=== PATIENT | male | born 1965 | race Caucasian/White ===

== ENCOUNTER → 2020-12-23 | Outpatient (CLI) | payer BC, OTHER | LOC: HYPER 07:42 | PROVIDERS: ATTEND Emergency Medicine | DX: T81.31XA Disruption of external operation (surgical) wound, not elsewhere classified, initial encounter (principal); L05.91 Pilonidal cyst without abscess; E66.9 Obesity, unspecified; F32.9 Major depressive disorder, single episode, unspecified; F41.9 Anxiety disorder, unspecified; Z68.34 Body mass index [BMI] 34.0-34.9, adult; Y92.238 Other place in hospital as the place of occurrence of the external cause; Y83.8 Other surgical procedures as the cause of abnormal reaction of the patient, or of later complication, without mention of misadventure at the time of the procedure ==

== ENCOUNTER → 2020-12-30 | Outpatient (CLI) | payer BC, OTHER | LOC: HYPER 07:44 | PROVIDERS: ATTEND Emergency Medicine | DX: T81.31XD Disruption of external operation (surgical) wound, not elsewhere classified, subsequent encounter (principal); L05.91 Pilonidal cyst without abscess; E66.9 Obesity, unspecified; F32.9 Major depressive disorder, single episode, unspecified; F41.9 Anxiety disorder, unspecified; Z68.34 Body mass index [BMI] 34.0-34.9, adult; Y83.8 Other surgical procedures as the cause of abnormal reaction of the patient, or of later complication, without mention of misadventure at the time of the procedure ==

== ENCOUNTER → 2021-01-05 | Outpatient (CLI) | payer BC, OTHER | LOC: HYPER 07:35 | PROVIDERS: ATTEND Specialist | DX: T81.31XD Disruption of external operation (surgical) wound, not elsewhere classified, subsequent encounter (principal); L05.91 Pilonidal cyst without abscess; E66.9 Obesity, unspecified; F32.9 Major depressive disorder, single episode, unspecified; F41.9 Anxiety disorder, unspecified; Z68.34 Body mass index [BMI] 34.0-34.9, adult; Y83.8 Other surgical procedures as the cause of abnormal reaction of the patient, or of later complication, without mention of misadventure at the time of the procedure ==

== ENCOUNTER → 2021-01-11 | Outpatient (CLI) | payer BC, OTHER | LOC: HYPER 08:58 | PROVIDERS: ATTEND Emergency Medicine Emergency Medical Services | DX: T81.31XD Disruption of external operation (surgical) wound, not elsewhere classified, subsequent encounter (principal); L98.492 Non-pressure chronic ulcer of skin of other sites with fat layer exposed; L05.91 Pilonidal cyst without abscess; F41.9 Anxiety disorder, unspecified; F32.9 Major depressive disorder, single episode, unspecified; Z79.899 Other long term (current) drug therapy; Y83.8 Other surgical procedures as the cause of abnormal reaction of the patient, or of later complication, without mention of misadventure at the time of the procedure ==

== ENCOUNTER → 2021-01-21 | Outpatient (CLI) | payer BC, OTHER | LOC: HYPER 08:06 | PROVIDERS: ATTEND Emergency Medicine | DX: T81.31XD Disruption of external operation (surgical) wound, not elsewhere classified, subsequent encounter (principal); L98.492 Non-pressure chronic ulcer of skin of other sites with fat layer exposed; L05.91 Pilonidal cyst without abscess; E66.9 Obesity, unspecified; F41.9 Anxiety disorder, unspecified; F32.9 Major depressive disorder, single episode, unspecified; Z68.34 Body mass index [BMI] 34.0-34.9, adult; Y83.8 Other surgical procedures as the cause of abnormal reaction of the patient, or of later complication, without mention of misadventure at the time of the procedure ==

== ENCOUNTER → 2021-01-27 | Outpatient (CLI) | payer BC, OTHER | LOC: HYPER 14:59 | PROVIDERS: ATTEND Emergency Medicine | DX: T81.31XD Disruption of external operation (surgical) wound, not elsewhere classified, subsequent encounter (principal); L98.492 Non-pressure chronic ulcer of skin of other sites with fat layer exposed; L05.91 Pilonidal cyst without abscess; E66.9 Obesity, unspecified; F41.9 Anxiety disorder, unspecified; F32.9 Major depressive disorder, single episode, unspecified; Z68.34 Body mass index [BMI] 34.0-34.9, adult; Y83.8 Other surgical procedures as the cause of abnormal reaction of the patient, or of later complication, without mention of misadventure at the time of the procedure ==

== ENCOUNTER → 2021-02-10 | Outpatient (CLI) | payer BC, OTHER | LOC: HYPER 10:04 | PROVIDERS: ATTEND Emergency Medicine | DX: T81.31XD Disruption of external operation (surgical) wound, not elsewhere classified, subsequent encounter (principal); L98.492 Non-pressure chronic ulcer of skin of other sites with fat layer exposed; L05.91 Pilonidal cyst without abscess; F41.9 Anxiety disorder, unspecified; F32.9 Major depressive disorder, single episode, unspecified; Z79.899 Other long term (current) drug therapy; Y83.8 Other surgical procedures as the cause of abnormal reaction of the patient, or of later complication, without mention of misadventure at the time of the procedure ==

== ENCOUNTER → 2021-02-17 | Outpatient (CLI) | payer BC, OTHER | LOC: HYPER 11:44 | PROVIDERS: ATTEND Emergency Medicine | DX: T81.31XD Disruption of external operation (surgical) wound, not elsewhere classified, subsequent encounter (principal); L98.492 Non-pressure chronic ulcer of skin of other sites with fat layer exposed; L05.91 Pilonidal cyst without abscess; E66.9 Obesity, unspecified; F41.9 Anxiety disorder, unspecified; F32.9 Major depressive disorder, single episode, unspecified; Z68.34 Body mass index [BMI] 34.0-34.9, adult; Y83.8 Other surgical procedures as the cause of abnormal reaction of the patient, or of later complication, without mention of misadventure at the time of the procedure ==

== ENCOUNTER → 2021-03-03 | Outpatient (CLI) | payer BC, OTHER | LOC: HYPER 10:10 | PROVIDERS: ATTEND Emergency Medicine | DX: T81.31XD Disruption of external operation (surgical) wound, not elsewhere classified, subsequent encounter (principal); L98.492 Non-pressure chronic ulcer of skin of other sites with fat layer exposed; L05.91 Pilonidal cyst without abscess; E66.9 Obesity, unspecified; F41.9 Anxiety disorder, unspecified; F32.9 Major depressive disorder, single episode, unspecified; Z68.34 Body mass index [BMI] 34.0-34.9, adult; Y83.8 Other surgical procedures as the cause of abnormal reaction of the patient, or of later complication, without mention of misadventure at the time of the procedure ==

== ENCOUNTER → 2021-03-31 | Outpatient (CLI) | payer BC, OTHER | LOC: HYPER 09:53 | PROVIDERS: ATTEND Emergency Medicine | DX: T81.31XD Disruption of external operation (surgical) wound, not elsewhere classified, subsequent encounter (principal); L98.492 Non-pressure chronic ulcer of skin of other sites with fat layer exposed; L05.91 Pilonidal cyst without abscess; F41.9 Anxiety disorder, unspecified; F32.9 Major depressive disorder, single episode, unspecified; Z79.899 Other long term (current) drug therapy; Y83.8 Other surgical procedures as the cause of abnormal reaction of the patient, or of later complication, without mention of misadventure at the time of the procedure ==